=== PATIENT | male | born 1995 | race Caucasian/White ===

== ENCOUNTER 2017-05-30 18:42 | Emergency (ER) | payer SELFPAY ==
[2017-05-30 18:53] VITALS: TEMP 98.7
--- NOTE | 2017-05-30 19:14 | C.PDOC ---
History Of Present Illness 21 y/o male bought by BLS to the ER [place] ice skating rink for evaluation of pain in the right shoulder. Patient states that he was skating and fell on his right shoulder. Patient states that he has a history of shoulder dislocation. Time Seen by Provider: 05/30/17 19:01 Chief Complaint (Nursing): Upper Extremity Problem/Injury History/Exam Limitations: no limitations Onset/Duration Of Symptoms: Hrs Current Symptoms Are (Timing): Still Present Past Medical History Reviewed: Historical Data, Nursing Documentation, Vital Signs Vital Signs: Last Vital Signs Temp 98.7 F 05/30/17 18:51 Pulse 60 05/30/17 18:51 Resp 18 05/30/17 18:51 BP 148/80 05/30/17 18:51 Pulse Ox 98 05/30/17 19:42 - Medical History PMH: No Chronic Diseases Surgical History: No Surg Hx Family History: States: No Known Family Hx - Social History Hx Alcohol Use: No Hx Substance Use: No - Immunization History Hx Tetanus Toxoid Vaccination: No Hx Influenza Vaccination: No Hx Pneumococcal Vaccination: No Review Of Systems Except As Marked, All Systems Reviewed And Found Negative. Musculoskeletal: Positive for: Shoulder Pain (right shoulder pain) Physical Exam - Physical Exam Appears: Non-toxic, No Acute Distress Skin: Normal Color, Warm Head: Atraumatic, Normacephalic Nose: Normal Neck: Supple Chest: Symmetrical Extremity: Other (gap in glenohumoral joint) ED Course And Treatment O2 Sat by Pulse Oximetry: 98 (RA) Pulse Ox Interpretation: Normal Medical Decision Making Medical Decision Making: Impression: Right Shoulder Pain Plan: X Ray - Right Shoulder 17:40 Post- reduction X rays show that shoulder dislocation has been successfully reduced. Patient will be discharged. Disposition - Disposition Disposition: HOME/ ROUTINE Disposition Time: 19:45 Condition: IMPROVED Additional Instructions: wear sling for 2 days see your orthopedist Forms: [facility] (Uzbek) - Clinical Impression Clinical Impression: Shoulder dislocation, recurrent - Scribe Statement Brendan Randall Provider Attestation: All medical record entries made by the Scribe were at my direction and personally dictated by me. I have reviewed the chart and agree that the record accurately reflects my personal performance of the history, physical exam, medical decision making, and the department course for this patient. I have also personally directed, reviewed, and agree with the discharge instructions and disposition.
[2017-05-30 20:14] VITALS: BP 124/77; PULSE 70; RESP 16; O2SAT 99
--- NOTE | 2017-05-31 10:00 | RAD ---
Right shoulder two views History: Fall. Comparison: None available. Findings: Limited study with no external rotation view provided. Question mild superior subluxation of the humeral head in relationship to the bony glenoid. No evidence of acute displaced fracture. Acromioclavicular joint space appears preserved. Impression: Limited study with no external rotation view provided. Question mild superior subluxation of the humeral head in relationship to the bony glenoid.
== END 2017-05-30 20:23 | disposition home or self-care (01) ==
LOC: C.ER 18:42
DX: M24.411 Recurrent dislocation, right shoulder (principal); V00.211A Fall from ice-skates, initial encounter; Y93.21 Activity, ice skating

== ENCOUNTER 2018-04-01 09:14 | Emergency (ER) | payer SELFPAY ==
[2018-04-01 09:22] VITALS: BMI 25.8
[2018-04-01 09:30] VITALS: BP 108/70; PULSE 74; RESP 18; TEMP 97.9; O2SAT 100
--- NOTE | 2018-04-01 09:33 | C.PDOC ---
History Of Present Illness 22 y/o male with no significant PMH presents to the ED c/o right ankle pain x 1 hour. Pt was walking down the street when he tripped over a crack on the sidewalk and rolled his right ankle. No head strike. Pt ia able to bear weight but has pain on ambulation. Denies numbness, paresthesias, knee pain, hip pain, vision changes, headache. Time Seen by Provider: 04/01/18 09:32 Chief Complaint (Nursing): Lower Extremity Problem/Injury History Per: Patient History/Exam Limitations: no limitations Onset/Duration Of Symptoms: Hrs Current Symptoms Are (Timing): Still Present Severity: Mild Past Medical History Reviewed: Historical Data, Nursing Documentation, Vital Signs Vital Signs: Last Vital Signs Temp 97.9 F 04/01/18 09:26 Pulse 74 04/01/18 09:26 Resp 18 04/01/18 09:26 BP 108/70 04/01/18 09:26 Pulse Ox 100 04/01/18 09:26 Family History: States: Unknown Family Hx - Social History Hx Alcohol Use: No Hx Substance Use: No - Immunization History Hx Tetanus Toxoid Vaccination: No Hx Influenza Vaccination: No Hx Pneumococcal Vaccination: No Review Of Systems Except As Marked, All Systems Reviewed And Found Negative. Constitutional: Negative for: Fever, Chills Eyes: Negative for: Vision Change Cardiovascular: Negative for: Chest Pain, Palpitations Respiratory: Negative for: Cough, Shortness of Breath Gastrointestinal: Negative for: Nausea, Vomiting, Abdominal Pain Musculoskeletal: Positive for: Arm Pain, Leg Pain (right), Foot Pain (right). Negative for: Neck Pain, Shoulder Pain, Back Pain, Hand Pain Skin: Negative for: Rash, Lesions, Bruising Neurological: Negative for: Weakness, Numbness, Headache, Dizziness Physical Exam - Physical Exam Appears: Well, No Acute Distress Skin: Normal Color, Warm, Dry, No Ecchymosis Head: Atraumatic, Normacephalic, No Tenderness Eye(s): bilateral: Normal Inspection, PERRL, EOMI Nose: Normal Oral Mucosa: Moist Tongue: Normal Appearing Lips: Normal Appearing Neck: Normal, Normal ROM Chest: Symmetrical, No Deformity, Tenderness Cardiovascular: Rhythm Regular Respiratory: Normal Breath Sounds Back: Normal Inspection Extremity: Normal ROM, Tenderness (mild at lateral right ankle; no malleolar tenderness), Capillary Refill (<2sec bilateral), No Deformity, Swelling (lateral right ankle) Extremity: Right: Painful To Bear Weight, Bilateral: Normal Color And Temperature, Normal ROM Pulses: Left Dorsalis Pedis: Normal, Right Dorsalis Pedis: Normal Neurological/Psych: Oriented x3, Normal Speech, Normal Cognition, Normal Cranial Nerves, No Cerebellar Signs, Normal Motor, Normal Sensation ED Course And Treatment O2 Sat by Pulse Oximetry: 100 Medical Decision Making Medical Decision Making: Initial Plan: --Ibuprofen --SARA bandage --Crutches No malleolar tenderness, mild mechanism of injury, pt able to ambulate >15 steps - no indication for ankle xray Pt offered crutches, but pt refused. On re-eval, pt reports decreased pain. Impression: Ankle Sprain Plan: --ibuprofen/tylenol for pain --RICE --Weight bear as tolerated --No strenuous activity --Followup with PMD within 2 days --Followup with orthopedic if pain persists --Return to ER if symptoms worsen Disposition - Disposition Referrals: Morgan [place] III, MD [Staff Provider] - Disposition: HOME/ ROUTINE Disposition Time: 09:37 Condition: IMPROVED Additional Instructions: Keep injured ankle compressed and elevated Ice the injured ankle every hour for 20minutes at a time, no direct skin contact No strenuous activity Take ibuprofen 400mg every 6 hours with food for pain Followup with primary within 2 days Followup with orthopedic doctor if pain persists Return to ED if symptoms worsen Instructions: Ankle Sprain Forms: [facility] (Japanese), Work Excuse Print Language: SLOVAK - Clinical Impression Clinical Impression: Ankle sprain
== END 2018-04-01 10:27 | disposition home or self-care (01) ==
LOC: C.ER 09:14
DX: S93.401A Sprain of unspecified ligament of right ankle, initial encounter (principal); X50.1XXA Overexertion from prolonged static or awkward postures, initial encounter; Y92.410 Unspecified street and highway as the place of occurrence of the external cause

== ENCOUNTER 2018-04-16 17:14 | Emergency (ER) | payer OTHER ==
[2018-04-16 17:14] VITALS: BMI 25.8
[2018-04-16 17:38] VITALS: BP 110/70; PULSE 78; RESP 16; TEMP 98.6; O2SAT 100
--- NOTE | 2018-04-16 18:05 | RAD ---
Date of service: 04/16/2018 PROCEDURE: Right Ankle Radiographs. HISTORY: PAIN COMPARISON: None available. FINDINGS: BONES: No acute fracture. JOINTS: Ankle mortise maintained. Talar dome intact SOFT TISSUES: Normal. OTHER FINDINGS: None. IMPRESSION: No demonstrated fracture or dislocation.
--- NOTE | 2018-04-16 18:13 | C.PDOC ---
History Of Present Illness 22 year old male comes in for evaluation of right foot pain developed [employer] after sustaining twisting injury while at work. Pain is localized and located to the dorsal aspect of the right foot. Patient notes the pain becomes worse with ambulation. Denies any vascular and sensory weakness, numbness, tingling and deformity. Time Seen by Provider: 04/16/18 17:31 Chief Complaint (Nursing): Lower Extremity Problem/Injury History Per: Patient History/Exam Limitations: no limitations Onset/Duration Of Symptoms: Hrs Current Symptoms Are (Timing): Still Present Recent travel outside of the [place]: No Past Medical History Reviewed: Historical Data, Nursing Documentation, Vital Signs Vital Signs: Last Vital Signs Temp 98.6 F 04/16/18 17:29 Pulse 78 04/16/18 17:29 Resp 16 04/16/18 17:29 BP 110/70 04/16/18 17:29 Pulse Ox 100 04/16/18 17:29 Family History: States: Unknown Family Hx - Social History Hx Alcohol Use: No Hx Substance Use: No - Immunization History Hx Tetanus Toxoid Vaccination: No Hx Influenza Vaccination: No Hx Pneumococcal Vaccination: No Review Of Systems Except As Marked, All Systems Reviewed And Found Negative. Musculoskeletal: Positive for: Foot Pain (right ) Neurological: Negative for: Weakness, Numbness, Dizziness Physical Exam - Physical Exam Appears: Well, Non-toxic, No Acute Distress Skin: Normal Color, Warm, No Rash, No Ecchymosis Head: Atraumatic, Normacephalic Eye(s): bilateral: PERRL Extremity: Normal ROM (RLE), Tenderness (right foot dorsal aspect over 5th MTB with mild edema), Capillary Refill (less than 2 sec), No Deformity, No Swelling Neurological/Psych: Oriented x3, Normal Speech, Normal Motor, Normal Sensation, Normal Reflexes ED Course And Treatment O2 Sat by Pulse Oximetry: 100 (RA) Pulse Ox Interpretation: Normal - Other Rad Right foot X-Ray: Interpreted by Me, Read By Radiologist Interpretation: (-) acute fx or dislocation Progress Note: On re-eval, pt is afebrile, hemodyanmicaly stable. Non-toxic. Ambulatory in ED with stable gait. Right foot: mild tenderness over 5th MTB, mild edema, no deformity, no skin changes. FAROM, no neuroavscular deficits. Imaging review (-). Facundo wrap applied to Right foot, air cast applied to Right ankle. Pt advised. ref. to f/u with Podiatry in 2-3 days for re-eval. return if any new hcnages. Disposition Counseled Patient/Family Regarding: Studies Performed, Diagnosis, Need For Followup, Rx Given - Disposition Referrals: [facility] [Outside] Disposition: HOME/ ROUTINE Disposition Time: 18:11 Condition: STABLE Additional Instructions: RICE-rest, ice, compression, elevation Air cats for 1 week Take medication as prescribed Follow up with Podiatry Clinic on Thursday from 12 noon-3pm for re-evaluation. return if any new changes. Prescriptions: Ibuprofen [Motrin Tab] 600 mg PO BID #20 tab Instructions: Foot Sprain (DC) Forms: [employer] (Irish), Work Excuse Print Language: TURKISH - Clinical Impression Clinical Impression: Foot sprain - PA / [employer]OLIN TE[employer]ER / Resident Statement MD/DO has reviewed & agrees with the documentation as recorded. - Scribe Statement The provider has reviewed the documentation as recorded by the Scribe (Paulette Sampson) All medical record entries made by the Scribe were at my direction and personally dictated by me. I have reviewed the chart and agree that the record accurately reflects my personal performance of the history, physical exam, medical decision making, and the department course for this patient. I have also personally directed, reviewed, and agree with the discharge instructions and disposition.
== END 2018-04-16 18:48 | disposition home or self-care (01) ==
LOC: C.ER 17:14
DX: S93.601A Unspecified sprain of right foot, initial encounter (principal); X50.9XXA Other and unspecified overexertion or strenuous movements or postures, initial encounter; Y92.89 Other specified places as the place of occurrence of the external cause; Y99.0 Civilian activity done for income or pay